=== PATIENT | female | born 1975 | race African-American/Black ===

== ENCOUNTER → 2016-10-05 | Outpatient (CLI) | payer OTHER ==
[~2016-10-05] VITALS: Ht 168.9 cm; Wt 128.1 kg
[2016-10-05 15:14] VITALS: BP 140/80; PULSE 75
[2016-10-05 15:49] VITALS: BP 140/80; PULSE 75
== END ==
LOC: LIGHT 14:31
DX: E66.01 Morbid (severe) obesity due to excess calories (principal); Z68.41 Body mass index [BMI] 40.0-44.9, adult